=== PATIENT | female | born 1980 | race Caucasian/White ===

== ENCOUNTER → 2021-07-14 | Outpatient (CLI) | payer OTHER | LOC: KOH-I 09:08 | DX: M79.671 Pain in right foot (principal); M19.071 Primary osteoarthritis, right ankle and foot | CPT/HCPCS: 73630 ==

== ENCOUNTER → 2021-07-18 | Outpatient (CLI) | payer OTHER | LOC: EMI 14:11 | DX: M65.861 Other synovitis and tenosynovitis, right lower leg (principal); S96.811A Strain of other specified muscles and tendons at ankle and foot level, right foot, initial encounter | CPT/HCPCS: 73721 ==